=== PATIENT | female | born 1965 | race Caucasian/White ===

== ENCOUNTER 2017-03-06 03:39 | Emergency (ER) | payer SELFPAY ==
[2017-03-06 04:29] LABS: Eosinophils % (Auto) 3.6 % (0.0-4.3); Hematocrit 38.7 % (30.3-42.9); Hemoglobin 12.6 gm/dl (10.1-14.3); Mean Corpuscular HGB Conc 33 % (30-34); Mean Corpuscular Hemoglobin 27 pg (28-32); Mean Corpuscular Volume 84 fl (79-97); Platelet Count 217 K/mm3 (140-440); Red Blood Count 4.62 M/mm3 (3.65-5.03); Red Cell Distribution Width 13.4 % (13.2-15.2); White Blood Count 8.5 K/mm3 (4.5-11.0)
[2017-03-06 04:52] LABS: Anion Gap 20 mmol/L; BUN/Creatinine Ratio 15.55; Blood Urea Nitrogen 14 mg/dL (7-17); Calcium 8.6 mg/dL (8.4-10.2); Carbon Dioxide 20 mmol/L (22-30); Chloride 102.9 mmol/L (98-107); Glucose 147 mg/dL (65-100); Potassium 3.6 mmol/L (3.6-5.0); Sodium 139 mmol/L (137-145)
[2017-03-06] MEDS ORDERED: FLEXERIL PO ONE (12:51)
--- NOTE | 2017-03-06 12:56 | Emergency Department Report ---
ED General Adult HPI - General Chief complaint: Chest Pain Stated complaint: LEFT SHLDR PAIN/SOB/CP Time Seen by Provider: 03/06/17 12:39 Source: patient Mode of arrival: Ambulatory Limitations: No Limitations - History of Present Illness Initial comments: 51-year-old female presents to the emergency department complaining of left upper back and shoulder pain beginning yesterday at approximately noon. Patient describes a sharp pain that has been constant since onset. Pain has begun to radiate over the top of her shoulder and into her left chest. She states the pain makes it difficult for her to breathe. She denies associated lightheadedness, diaphoresis, nausea, or vomiting. Pain is worse with movement from side to side. There are no other complaints. -: Gradual, days(s) (1) Time: 12:00 Location: back, left, upper extremity Radiation: other (chest) Severity scale (0 -10): 8 Quality: sharp Consistency: constant Improves with: none Worsens with: movement Associated Symptoms: shortness of breath Treatments Prior to Arrival: Aspirin - Related Data Home Medications Medication Instructions Recorded Confirmed Last Taken Lisinopril/Hydrochlorothiazide 1 tab PO DAILY 12/07/14 03/13/15 12/06/14 [Lisinopril-Hctz 10-12.5 mg Tab] 10/12.5mg Metformin HCl [metFORMIN ER] 500 mg PO DAILY 12/07/14 03/13/15 12/06/14 500mg Previous Rx's Medication Instructions Recorded Last Taken Type Aspirin [Aspirin BABY CHEW TAB] 81 mg PO QDAY #30 tab.chew 12/07/14 Unknown Rx Atorvastatin [Lipitor] 40 mg PO QHS #30 tab 12/07/14 Unknown Rx HYDROcodone/APAP 5-325 [[place] 1 each PO Q6HR PRN #20 tablet 03/13/15 Unknown Rx 5/325] Ibuprofen [Motrin] 800 mg PO Q8H PRN #30 tablet 03/13/15 Unknown Rx Cyclobenzaprine [Flexeril] 10 mg PO TID PRN #30 tablet 03/06/17 Unknown Rx Allergies Allergy/AdvReac Type Severity Reaction Status Date / Time No Known Allergies Allergy Verified 12/07/14 07:10 ED Review of Systems ROS: Stated complaint: LEFT SHLDR PAIN/SOB/CP Other details as noted in HPI Comment: All other systems reviewed and negative Respiratory: shortness of breath Musculoskeletal: as per HPI, back pain ED Past Medical Hx - Past Medical History Previous Medical History?: Yes Hx Hypertension: Yes Hx Diabetes: Yes (borderline type II) Additional medical history: Anemia - Surgical History Past Surgical History?: No - Family History Family history: hypertension, renal disease - Social History Smoking Status: Current Every Day Smoker Substance Use Type: None - Medications Home Medications: Home Medications Medication Instructions Recorded Confirmed Last Taken Type Aspirin [Aspirin BABY CHEW TAB] 81 mg PO QDAY #30 tab.chew 12/07/14 03/13/15 Unknown Rx Atorvastatin [Lipitor] 40 mg PO QHS #30 tab 12/07/14 03/13/15 Unknown Rx Lisinopril/Hydrochlorothiazide 1 tab PO DAILY 12/07/14 03/13/15 12/06/14 History [Lisinopril-Hctz 10-12.5 mg Tab] 10/12.5mg Metformin HCl [metFORMIN ER] 500 mg PO DAILY 12/07/14 03/13/15 12/06/14 History 500mg HYDROcodone/APAP 5-325 [[place] 1 each PO Q6HR PRN #20 tablet 03/13/15 Unknown Rx 5/325] Ibuprofen [Motrin] 800 mg PO Q8H PRN #30 tablet 03/13/15 Unknown Rx Cyclobenzaprine [Flexeril] 10 mg PO TID PRN #30 tablet 03/06/17 Unknown Rx ED Physical Exam - General Limitations: No Limitations General appearance: alert, in no apparent distress - Head Head exam: Present: atraumatic, normocephalic - Eye Eye exam: Present: normal appearance, PERRL, EOMI - ENT ENT exam: Present: normal exam, normal orophraynx, mucous membranes moist - Neck Neck exam: Present: normal inspection, full ROM. Absent: tenderness - Respiratory Respiratory exam: Present: normal lung sounds bilaterally. Absent: respiratory distress, chest wall tenderness - Cardiovascular Cardiovascular Exam: Present: regular rate, normal rhythm, normal heart sounds - GI/Abdominal GI/Abdominal exam: Present: soft, normal bowel sounds. Absent: distended, tenderness - Extremities Exam Extremities exam: Present: normal inspection, full ROM. Absent: tenderness - Back Exam Back exam: Present: normal inspection, full ROM, tenderness, muscle spasm, paraspinal tenderness (left upper thoracic). Absent: vertebral tenderness - Neurological Exam Neurological exam: Present: alert, oriented X3. Absent: motor sensory deficit - Skin Skin exam: Present: warm, dry, intact ED Course Vital Signs 03/06/17 03/06/17 03:59 07:01 Temperature 98.4 F 97.4 F L Pulse Rate 50 L 45 L Respiratory 20 18 Rate Blood Pressure 164/112 175/99 O2 Sat by Pulse 100 100 Oximetry ED Medical Decision Making - Lab Data Result diagrams: 03/06/17 04:14 03/06/17 04:14 - EKG Data -: EKG Interpreted by Me EKG shows normal: sinus rhythm, axis, intervals, QRS complexes Rate: bradycardia - EKG Data When compared to previous EKG there are: no significant change Interpretation: unchanged when compared t (12/07/2014), nonspecific ST-T wave amanda - Medical Decision Making Lab results reviewed and discussed with the patient. Patient has had a nonischemic ECG and 3 negative troponins. Her symptoms are more consistent with musculoskeletal upper back pain. Patient will be discharged home at this time with supportive care to follow-up with her primary care physician. - Differential Diagnosis back pain, muscle spasm, atypical chest pain Critical care attestation.: If time is entered above; I have spent that time in minutes in the direct care of this critically ill patient, excluding procedure time. ED Disposition Clinical Impression: Muscle spasm of back Disposition: DISCHARGED TO HOME OR SELFCARE Is pt being admited?: No Condition: Stable Instructions: Muscle Spasm (ED) Prescriptions: Cyclobenzaprine [Flexeril] 10 mg PO TID PRN #30 tablet PRN Reason: Muscle Spasm Referrals: PRIMARY CARE, [Primary Care Provider] - 3-5 Days Time of Disposition: 12:56
[2017-03-06 13:20] VITALS: BP 173/94
== END 2017-03-06 13:21 | disposition home or self-care (01) ==
LOC: ED 03:39
DX: M62.830 Muscle spasm of back (principal); I10 Essential (primary) hypertension; F17.200 Nicotine dependence, unspecified, uncomplicated
CPT/HCPCS: 36415; 80048; 84484; 85025; 93005; 93010; 99284

== ENCOUNTER 2017-11-23 10:37 | Emergency (ER) | payer OTHER ==
[2017-11-23 11:38] VITALS: BP 142/94
[2017-11-23] MEDS ORDERED: NORCO 5/325 PO ONE (11:54)
--- NOTE | 2017-11-23 11:55 | Emergency Department Report ---
HPI - General Chief Complaint: Earache Time Seen by Provider: 11/23/17 11:49 - HPI HPI: Patient reported that she's been having right ear pain that started 1 week ago. She says she is having lots of itching in denies any trauma to right ear. Denies any drainage. Denies any fever or chills. She reports nasal congestion and runny nose. Denies any shortness of breath, chest pain or coughing. Pain is 7 out of 10 and [id number] medication helped minimally. Patient has no primary care physician. She has a history of prediabetes and hypertension and not taking medication. Patient said she was on medication in the past but she ran out and she doesn't have any insurance or primary care physician. Her blood pressure today is 142/94. ED Past Medical Hx - Past Medical History Previous Medical History?: Yes Hx Hypertension: Yes Hx CVA: No Hx Heart Attack/AMI: No Hx Congestive Heart Failure: No Hx Diabetes: Yes (borderline type II) Hx Deep Vein Thrombosis: No Hx Pulmonary Embolism: No Hx GERD: No Hx Liver Disease: No Hx Renal Disease: No Hx of Cancer: No Hx Sickle Cell Disease: No Hx Arthritis: No Hx Headaches / Migraines: No Hx Seizures: No Hx Kidney Stones: No Hx Psychiatric Treatment: No Hx Asthma: No Hx COPD: No Hx Tuberculosis: No Hx Dementia: No Hx HIV: No Additional medical history: Anemia - Surgical History Past Surgical History?: No Hx Coronary Stent: No Hx Open Heart Surgery: No Hx Pacemaker: No Hx Internal Defibrillator: No Hx Cholecystectomy: No Hx Appendectomy: No Hx Breast Surgery: No - Family History Family history: diabetes, hypertension - Social History Smoking Status: Current Every Day Smoker Substance Use Type: None - Medications Home Medications: Home Medications Medication Instructions Recorded Confirmed Last Taken Type Aspirin [Aspirin BABY CHEW TAB] 81 mg PO QDAY #30 tab.chew 12/07/14 03/13/15 Unknown Rx HYDROcodone/APAP 5-325 [[place] 1 each PO Q6HR PRN #20 tablet 03/13/15 Unknown Rx 5/325] Ibuprofen [Motrin] 800 mg PO Q8H PRN #30 tablet 03/13/15 Unknown Rx Atorvastatin [Lipitor] 40 mg PO QHS #30 tab 03/06/17 Unknown Rx Cyclobenzaprine [Flexeril] 10 mg PO TID PRN #30 tablet 03/06/17 Unknown Rx Lisinopril/Hydrochlorothiazide 1 tab PO QDAY #30 tablet 03/06/17 Unknown Rx [Zestoretic 10-12.5 mg] metFORMIN [Glucophage] 500 mg PO BID #60 tablet 03/06/17 Unknown Rx Acetaminophen/Codeine [Tylenol 1 tab PO Q6H PRN 3 Days #12 tab 11/23/17 Unknown Rx /Codeine # 3 tab] Amoxicillin/K Clav Tab [Augmentin 1 tab PO Q12HR 10 Days #20 tab 11/23/17 Unknown Rx 875 mg] Cetirizine HCl [ZyrTEC] 10 mg PO QAM 14 Days #14 capsule 11/23/17 Unknown Rx Fluticasone [Flonase] 1 spray NS QDAY 14 Days #1 bottle 11/23/17 Unknown Rx Neomy/Polymyx B/Hc (Otic) Soln 4 drops OTIC TID 7 Days #1 bottle 11/23/17 Unknown Rx [Cortisporin (Otic) Soln] ED Review of Systems ROS: Stated complaint: RIGHT EAR PAIN Other details as noted in HPI Comment: All other systems reviewed and negative Constitutional: no symptoms reported Eyes: denies: eye pain, eye discharge ENT: ear pain, hearing loss (decreased hearing to right ear), congestion. denies: throat pain, dental pain Respiratory: no symptoms reported Cardiovascular: denies: chest pain, palpitations, dyspnea on exertion, edema, syncope, paroxysmal nocturnal dyspnea Gastrointestinal: denies: abdominal pain, nausea, vomiting, diarrhea Musculoskeletal: denies: back pain, joint swelling, arthralgia, myalgia Skin: denies: rash Neurological: denies: headache, vertigo Physical Exam - Physical Exam Vital Signs: Vital Signs 11/23/17 11:26 Temperature 98.3 F Pulse Rate 69 Respiratory 16 Rate Blood Pressure 142/94 Blood Pressure 142/94 [Right] O2 Sat by Pulse 98 Oximetry General: This is a 52-year-old female well-nourished well-developed in no acute distress. Physical Exam: Head: Normocephalic atraumatic Ears:BIateral TM congested without RT TM erythema and loss of bony landmarks. RT EAC with redness and swelling and tender to palpate at right tragus. No mastoid bone tenderness. Mouth: Moist, no pharyngeal erythema or exudate . No tonsillar erythema or exudate. UVULA midline and oral airways patent. No peritonsillar abscess Neck: Nontender to palpate, supple, normal range of motion. No adenopathy. No c- spine tenderness. Nose: Bilateral nasal mucosa congested with clear drainage. Maxillary and frontal sinuses non-tender to palpate. Eyes: Sclerae and conjunctiva without injection. Bilateral pupils equal and reactive to light. Bilateral lids are normal. Normal accommodation.BEOMI Lungs: Clear to auscultate bilaterally, no rhonchi wheezes or rales. Normal work of breathing and no chest wall tenderness CV: S1, S2. Regular rate and rhythm negative murmur. Capillary refill is less than 3 seconds Skin: Clean dry and intact, no rashes or lesions Psych: Normal mood and behavior ED Course Vital Signs 11/23/17 11:26 Temperature 98.3 F Pulse Rate 69 Respiratory 16 Rate Blood Pressure 142/94 Blood Pressure 142/94 [Right] O2 Sat by Pulse 98 Oximetry - Reevaluation(s) Reevaluation #1: 11/23/17 12:06 Given [place] 5/325 one tablet by mouth in the emergency room for right ear pain. ED Medical Decision Making - Medical Decision Making ED course: Patient here with right ear pain that she been ongoing for 1 week. She was found to have otitis externa and otitis media right ear. Also with nasal congestion with rhinorrhea. Patient was given [place] 5/325 one tablets by mouth emergency room for right ear pain. Patient discharged home with prescriptions for Tylenol 3, Motrin, Corticosporin on headache and Augmentin. I discussed treatment plan and diagnosis of patient and I discussed with her that she needs to follow-up with [facility] to establish primary care to manage chronic hypertension and prediabetes and also for any other medical problems that might come up. I also discussed with her that she needs to keep a log of her blood pressure and take to initial visit at some [facility]. I also discussed patient that she needs to follow up with ear nose and throat doctor and I will refer her to one. Patient voiced understanding of discharge instruction and treatment plan and discharged home in stable condition. Critical care attestation.: If time is entered above; I have spent that time in minutes in the direct care of this critically ill patient, excluding procedure time. ED Disposition Clinical Impression: Nasal congestion with rhinorrhea, Acute otitis media with effusion of right ear , Otalgia, right ear Otitis externa of right ear Qualifiers: Otitis externa type: unspecified type Chronicity: acute Qualified Code(s): H60.501 - Unspecified acute noninfective otitis externa, right ear Disposition: DC-01 TO HOME OR SELFCARE Is pt being admited?: No Does the pt Need Aspirin: No Condition: Stable Instructions: Earache (ED), Otitis Externa (ED), Otitis Media (ED), Cold Symptoms (ED) Additional Instructions: Please increase her fluid intake Flush nostrils with saline nasal spray take antibiotic as prescribed Please of not drive or operate heavy machinery while taking Tylenol No. 3 as this medication causes drowsiness F/U with primary care physician as instructed Please keep a log a few blood pressure and take to primary care visit with you. Prescriptions: Acetaminophen/Codeine [Tylenol /Codeine # 3 tab] 1 tab PO Q6H PRN 3 Days #12 tab PRN Reason: Pain, Moderate (4-6) Amoxicillin/K Clav Tab [Augmentin 875 mg] 1 tab PO Q12HR 10 Days #20 tab Cetirizine HCl [ZyrTEC] 10 mg PO QAM 14 Days #14 capsule Fluticasone [Flonase] 1 spray NS QDAY 14 Days #1 bottle Neomy/Polymyx B/Hc (Otic) Soln [Cortisporin (Otic) Soln] 4 drops OTIC TID 7 Days #1 bottle Referrals: [facility] [Outside] - 3-5 Days ISATU SPRING MD [Staff Physician] - 2-3 Days Forms: Accompanied Note, Work/School Release Form(ED)
== END 2017-11-23 12:24 | disposition home or self-care (01) ==
LOC: ED 10:37
DX: H60.501 Unspecified acute noninfective otitis externa, right ear (principal); H65.191 Other acute nonsuppurative otitis media, right ear; I10 Essential (primary) hypertension; F17.200 Nicotine dependence, unspecified, uncomplicated; R09.81 Nasal congestion; R09.89 Other specified symptoms and signs involving the circulatory and respiratory systems
CPT/HCPCS: 99282

== ENCOUNTER 2018-01-06 10:37 | Emergency (ER) | payer SELFPAY ==
[2018-01-06 11:50] LABS: Bilirubin,Urine NEG (Negative); Blood,Urine MOD (Negative); Color,Urine Yellow (Yellow); Mucus,Urine 3+ /HPF; Nitrite,Urine NEG (Negative); Protein,Urine <15 mg/dL mg/dL (Negative); Urobilinogen,Urine < 2.0 mg/dL (<2.0)
[2018-01-06] MEDS ORDERED: NACL 0.9% 1000 ML 1,000 ML IV ONE (12:46)
[2018-01-06] MEDS ORDERED: CATAPRES PO ONE (12:46)
--- NOTE | 2018-01-06 12:46 | Emergency Department Report ---
Blank Doc - Documentation Documentation: is a 52-year-old Citizen Of [place] female who is presenting with several issues. Issue #1 is that the patient is having some vaginal itching status post taken antibiotics several weeks ago. Patient most likely has a yeast infection. Patient also has been off her blood pressure medicines for the past 3 months. Blood pressure was elevated to be given blood pressure control. Patient also on her urinalysis has a elevated blood glucose he does have urinary frequency. Patient will have blood work done to see how uncontrolled her glucoses. Patient was told 3 years ago she was borderline diabetic.
--- NOTE | 2018-01-06 12:51 | Emergency Department Report ---
ED Female HPI - General Chief complaint: Urogenital-Female Stated complaint: VAGINAL ITCHING/LEFT WRIST PAIN Time Seen by Provider: 01/06/18 12:38 Source: patient Mode of arrival: Ambulatory Limitations: No Limitations - History of Present Illness Initial comments: This is a 52-year-old female with complaint of vaginal irritation and itching. She was recently treated with amoxicillin for infection and report that she got vaginal irritation for 2 weeks. Denies any concern for STDs. She has associated pressure and has been out of her blood pressure medication for 3 months. She is also was noted to have greater than 500 glucose and a urine and said that she was told that she was borderline diabetic a while back but did not follow-up. Her POC glucoses that her stool and today. She is complaining of left wrist pain. Vaginal pain externally. Vaginal itching externally. Pain is rated from 5-7 out of 10. Burning to the external vaginal area and aching into left wrist. Patient blood pressure is 184/105 with history of high blood pressure on not taking her blood pressure medication. She is asymptomatic with elevated blood pressure. No [id number] medication taken for pain. Painful left wrist is occasional and denies any injury. Denies any fever or chills. Denies any abdominal low back pain. Denies any urinary burning, frequency or urgency. Denies any blood in her urine. She does complain of some urinary frequency but denies any increased thirst. Denies any recent weight loss. MD Complaint: other (vaginal irritation and itching, left wrist pain, history of hypertension with no medication at this time but was on medication in the past.) Onset/Timin -: week(s) (vaginal irritation. The pressure medication of 3 months.) Severity: severe Severity scale (0 -10): 7 Quality: burning, aching Consistency: constant, intermittent Improves with: none Worsens with: none Are you Now?: No Associated Symptoms: other (external vaginal pain and itching, left wrist pain, elevated BP.). denies: vaginal discharge, vaginal bleeding, abdominal pain, nausea/vomiting, fever/chills, headaches, loss of appetite, dysuria, hematuria, rash, seizure, shortness of breath, syncope, weakness - Related Data Sexually active: Yes Previous Rx's Medication Instructions Recorded Last Taken Type Aspirin [Aspirin BABY CHEW TAB] 81 mg PO QDAY #30 tab.chew 12/07/14 Unknown Rx HYDROcodone/APAP 5-325 [[place] 1 each PO Q6HR PRN #20 tablet 03/13/15 Unknown Rx 5/325] Ibuprofen [Motrin] 800 mg PO Q8H PRN #30 tablet 03/13/15 Unknown Rx Atorvastatin [Lipitor] 40 mg PO QHS #30 tab 03/06/17 Unknown Rx Cyclobenzaprine [Flexeril] 10 mg PO TID PRN #30 tablet 03/06/17 Unknown Rx Acetaminophen/Codeine [Tylenol 1 tab PO Q6H PRN 3 Days #12 tab 11/23/17 Unknown Rx /Codeine # 3 tab] Amoxicillin/K Clav Tab [Augmentin 1 tab PO Q12HR 10 Days #20 tab 11/23/17 Unknown Rx 875 mg] Cetirizine HCl [ZyrTEC] 10 mg PO QAM 14 Days #14 capsule 11/23/17 Unknown Rx Fluticasone [Flonase] 1 spray NS QDAY 14 Days #1 bottle 11/23/17 Unknown Rx Neomy/Polymyx B/Hc (Otic) Soln 4 drops OTIC TID 7 Days #1 bottle 11/23/17 Unknown Rx [Cortisporin (Otic) Soln] Fluconazole [Diflucan TAB] 100 mg PO QDAY 2 Days #2 tablet 01/06/18 Unknown Rx Lisinopril/Hydrochlorothiazide 1 tab PO QDAY #30 tablet 01/06/18 Unknown Rx [Zestoretic 10-12.5 mg] Nystatin Cream [Mycostatin Cream] 1 applic TP BID #1 tube 01/06/18 Unknown Rx metFORMIN [Glucophage] 500 mg PO BID #60 tablet 01/06/18 Unknown Rx metroNIDAZOLE [Flagyl] 500 mg PO Q12HR 7 Days #14 tab 01/06/18 Unknown Rx Allergies Allergy/AdvReac Type Severity Reaction Status Date / Time No Known Allergies Allergy Verified 12/07/14 07:10 ED Review of Systems ROS: Stated complaint: VAGINAL ITCHING/LEFT WRIST PAIN Other details as noted in HPI Comment: All other systems reviewed and negative Constitutional: no symptoms reported Eyes: denies: eye pain, eye discharge, vision change ENT: denies: ear pain Respiratory: no symptoms reported Cardiovascular: denies: chest pain, palpitations, dyspnea on exertion, edema, syncope, paroxysmal nocturnal dyspnea Endocrine: denies: excessive sweating, flushing, intolerance to cold, intolerance to heat, increased hunger, increased thirst, increased urine, unexplained weight gain, unexplained weight loss Gastrointestinal: denies: abdominal pain, nausea, vomiting, diarrhea, constipation, hematemesis, melena, hematochezia Genitourinary: frequency, other (vaginal irritation and redness). denies: urgency, dysuria, hematuria, discharge, abnormal menses, dyspareunia Skin: denies: rash Neurological: denies: headache, weakness, numbness, paresthesias, confusion, abnormal gait, vertigo Psychiatric: denies: anxiety ED Past Medical Hx - Past Medical History Previous Medical History?: Yes Hx Hypertension: Yes Hx CVA: No Hx Heart Attack/AMI: No Hx Congestive Heart Failure: No Hx Diabetes: Yes (borderline type II) Hx Deep Vein Thrombosis: No Hx Pulmonary Embolism: No Hx GERD: No Hx Liver Disease: No Hx Renal Disease: No Hx Sickle Cell Disease: No Hx Arthritis: No Hx Headaches / Migraines: No Hx Seizures: No Hx Kidney Stones: No Hx Psychiatric Treatment: No Hx Asthma: No Hx COPD: No Hx Tuberculosis: No Hx Dementia: No Hx HIV: No Additional medical history: Anemia - Surgical History Past Surgical History?: No Hx Coronary Stent: No Hx Open Heart Surgery: No Hx Pacemaker: No Hx Internal Defibrillator: No Hx Cholecystectomy: No Hx Appendectomy: No Hx Breast Surgery: No - Family History Family history: diabetes, hypertension - Social History Smoking Status: Never Smoker Substance Use Type: Alcohol, Prescribed - Medications Home Medications: Home Medications Medication Instructions Recorded Confirmed Last Taken Type Aspirin [Aspirin BABY CHEW TAB] 81 mg PO QDAY #30 tab.chew 12/07/14 03/13/15 Unknown Rx HYDROcodone/APAP 5-325 [[place] 1 each PO Q6HR PRN #20 tablet 03/13/15 Unknown Rx 5/325] Ibuprofen [Motrin] 800 mg PO Q8H PRN #30 tablet 03/13/15 Unknown Rx Atorvastatin [Lipitor] 40 mg PO QHS #30 tab 03/06/17 Unknown Rx Cyclobenzaprine [Flexeril] 10 mg PO TID PRN #30 tablet 03/06/17 Unknown Rx Acetaminophen/Codeine [Tylenol 1 tab PO Q6H PRN 3 Days #12 tab 11/23/17 Unknown Rx /Codeine # 3 tab] Amoxicillin/K Clav Tab [Augmentin 1 tab PO Q12HR 10 Days #20 tab 11/23/17 Unknown Rx 875 mg] Cetirizine HCl [ZyrTEC] 10 mg PO QAM 14 Days #14 capsule 11/23/17 Unknown Rx Fluticasone [Flonase] 1 spray NS QDAY 14 Days #1 bottle 11/23/17 Unknown Rx Neomy/Polymyx B/Hc (Otic) Soln 4 drops OTIC TID 7 Days #1 bottle 11/23/17 Unknown Rx [Cortisporin (Otic) Soln] Fluconazole [Diflucan TAB] 100 mg PO QDAY 2 Days #2 tablet 01/06/18 Unknown Rx Lisinopril/Hydrochlorothiazide 1 tab PO QDAY #30 tablet 01/06/18 Unknown Rx [Zestoretic 10-12.5 mg] Nystatin Cream [Mycostatin Cream] 1 applic TP BID #1 tube 01/06/18 Unknown Rx metFORMIN [Glucophage] 500 mg PO BID #60 tablet 01/06/18 Unknown Rx metroNIDAZOLE [Flagyl] 500 mg PO Q12HR 7 Days #14 tab 01/06/18 Unknown Rx ED Physical Exam - General Limitations: No Limitations General appearance: alert, in no apparent distress - Head Head exam: Present: atraumatic, normocephalic, normal inspection - Eye Eye exam: Present: normal appearance, PERRL, EOMI Pupils: Present: normal accommodation - ENT ENT exam: Present: normal exam, normal orophraynx, mucous membranes moist, TM's normal bilaterally, normal external ear exam - Neck Neck exam: Present: normal inspection, full ROM, other (no C-spine tenderness). Absent: tenderness, meningismus, lymphadenopathy, thyromegaly - Respiratory Respiratory exam: Present: normal lung sounds bilaterally. Absent: respiratory distress, chest wall tenderness, accessory muscle use - Cardiovascular Cardiovascular Exam: Present: regular rate, normal rhythm, normal heart sounds. Absent: systolic murmur, diastolic murmur - GI/Abdominal GI/Abdominal exam: Present: soft, normal bowel sounds. Absent: distended, tenderness, guarding, rebound, rigid, organomegaly, mass, bruit, pulsatile mass , hernia - External exam: Present: erythema, swelling. Absent: normal external exam, lesions, lacerations, ecchymosis, bleeding Speculum exam: Present: vaginal discharge, cervical discharge, other (patient has small kidney shaped , fleshy, extended from her cervix that is not removable. No CMT and nontender to palpate. Appears to be an appendage coming from her cervix area) Bi-manual exam: Present: other (patient has small kidney shaped , fleshy, extended from her cervix that is not removable. No CMT and nontender to palpate. Appears to be an appendage coming from her cervix area). Absent: cervical motion tendernes, adnexal tenderness, adnexal mass, uterine enlargement , uterine tenderness - Extremities Exam Extremities exam: Present: normal inspection, full ROM, normal capillary refill , other (abdomen is without any difficulties). Absent: tenderness, pedal edema , joint swelling, calf tenderness - Back Exam Back exam: Present: normal inspection, full ROM. Absent: tenderness, CVA tenderness (R), CVA tenderness (L), muscle spasm, paraspinal tenderness, vertebral tenderness, rash noted - Neurological Exam Neurological exam: Present: alert, oriented X3, normal gait, reflexes normal. Absent: motor sensory deficit - Psychiatric Psychiatric exam: Present: normal affect, normal mood - Skin Skin exam: Present: warm, dry, intact, normal color. Absent: rash ED Course Vital Signs 01/06/18 01/06/18 01/06/18 10:48 13:24 13:26 Temperature 98.6 F Pulse Rate 97 H 47 L 47 L Respiratory 20 20 Rate Blood Pressure 184/105 146/76 Blood Pressure 146/76 [Left] O2 Sat by Pulse 99 99 Oximetry - Reevaluation(s) Reevaluation #1: 01/06/18 13:12 Patient stable no distress at present. She started again IV fluids normal saline for elevated blood sugar. Clonidine 0.2 mg per elevated blood pressure. Awaiting lab results. Reevaluation #2: 01/06/18 13:32 Patient had pelvic exam, GC ,chlamydia and wet prep sent and pending. 01/06/18 14:14 Patient is stable at present. No discomfort. Blood pressure stable. Pelvic exam revealed vulvovaginitis and normal findings and cervix for mass. Patient given IV Rocephin 1 g IV and completed IV fluid. Awaiting blood glucose Reevaluation #3: 01/06/18 14:33 Blood sugar is now 267 patient's stable. IV fluid completed. ED Medical Decision Making - Lab Data Result diagrams: 01/06/18 13:05 01/06/18 13:05 Lab Results 01/06/18 01/06/18 01/06/18 Range/Units 11:01 11:12 13:05 WBC 9.0 (4.5-11.0) K/mm3 RBC 4.95 (3.65-5.03) M/mm3 Hgb 13.6 (10.1-14.3) gm/dl Hct 41.1 (30.3-42.9) % MCV 83 (79-97) fl MCH 27 L (28-32) pg MCHC 33 (30-34) % RDW 13.5 (13.2-15.2) % Plt Count 245 (140-440) K/mm3 Lymph % (Auto) 23.5 (13.4-35.0) % [place] % (Auto) 4.9 (0.0-7.3) % Eos % (Auto) 1.8 (0.0-4.3) % Baso % (Auto) 0.9 (0.0-1.8) % Lymph # 2.1 (1.2-5.4) K/mm3 [place] # 0.4 (0.0-0.8) K/mm3 Eos # 0.2 (0.0-0.4) K/mm3 Baso # 0.1 (0.0-0.1) K/mm3 Seg Neutrophils % 68.9 (40.0-70.0) % Seg Neutrophils # 6.2 (1.8-7.7) K/mm3 Sodium (137-145) mmol/L Potassium (3.6-5.0) mmol/L Chloride (98-107) mmol/L Carbon Dioxide (22-30) mmol/L Anion Gap mmol/L BUN (7-17) mg/dL Creatinine (0.7-1.2) mg/dL Estimated GFR ml/min BUN/Creatinine Ratio % Glucose (65-100) mg/dL POC Glucose 351 H (70-105) Calcium (8.4-10.2) mg/dL Urine Color Yellow (Yellow) Urine Turbidity Clear (Clear) Urine pH 5.0 (5.0-7.0) Ur Specific [place] 1.037 H (1.003-1.030) Urine Protein <15 mg/dl (Negative) mg/dL Urine Glucose (UA) >=500 (Negative) mg/dL Urine Ketones Neg (Negative) mg/dL Urine Blood Mod (Negative) Urine Nitrite Neg (Negative) Urine Bilirubin Neg (Negative) Urine Urobilinogen < 2.0 (<2.0) mg/dL Ur Leukocyte Esterase Neg (Negative) Urine WBC (Auto) 10.0 H (0.0-6.0) /HPF Urine RBC (Auto) 1.0 (0.0-6.0) /HPF U Epithel Cells (Auto) 2.0 (0-13.0) /HPF Urine Mucus 3+ /HPF 01/06/18 Range/Units 13:05 WBC (4.5-11.0) K/mm3 RBC (3.65-5.03) M/mm3 Hgb (10.1-14.3) gm/dl Hct (30.3-42.9) % MCV (79-97) fl MCH (28-32) pg MCHC (30-34) % RDW (13.2-15.2) % Plt Count (140-440) K/mm3 Lymph % (Auto) (13.4-35.0) % [place] % (Auto) (0.0-7.3) % Eos % (Auto) (0.0-4.3) % Baso % (Auto) (0.0-1.8) % Lymph # (1.2-5.4) K/mm3 [place] # (0.0-0.8) K/mm3 Eos # (0.0-0.4) K/mm3 Baso # (0.0-0.1) K/mm3 Seg Neutrophils % (40.0-70.0) % Seg Neutrophils # (1.8-7.7) K/mm3 Sodium 136 L (137-145) mmol/L Potassium 3.6 (3.6-5.0) mmol/L Chloride 102.7 (98-107) mmol/L Carbon Dioxide 23 (22-30) mmol/L Anion Gap 14 mmol/L BUN 9 (7-17) mg/dL Creatinine 0.7 (0.7-1.2) mg/dL Estimated GFR > 60 ml/min BUN/Creatinine Ratio 13 % Glucose 299 H (65-100) mg/dL POC Glucose (70-105) Calcium 8.8 (8.4-10.2) mg/dL Urine Color (Yellow) Urine Turbidity (Clear) Urine pH (5.0-7.0) Ur Specific [place] (1.003-1.030) Urine Protein (Negative) mg/dL Urine Glucose (UA) (Negative) mg/dL Urine Ketones (Negative) mg/dL Urine Blood (Negative) Urine Nitrite (Negative) Urine Bilirubin (Negative) Urine Urobilinogen (<2.0) mg/dL Ur Leukocyte Esterase (Negative) Urine WBC (Auto) (0.0-6.0) /HPF Urine RBC (Auto) (0.0-6.0) /HPF U Epithel Cells (Auto) (0-13.0) /HPF Urine Mucus /HPF Wet prep with no trichomoniasis, no yeast and 20% clue cells. GC and chlamydia is pending. Urine culture pending - Medical Decision Making ED course: Patient with multiple complaints include vaginal itching and burning , with pelvic exam findings for cervical and vaginal discharge without any odor. She also has appendage extending from her cervical os that is nontender to touch and she had no CMT. Wet prep revealed less than 20% clue cell, no trichomonas or yeast seen. Patient with diagnosis of vulvovaginitis, use. She is also complaining of left wrist pain without any injury and she is with full range of motion without numbness on the erythema. Lab work stable except she has urinalysis with findings for UTI, urine culture sent and pending, E and chlamydia pending. Patient has greater her glucose in her urine, POC glucose 351 and glucose is greater than 250. She has been given 1 L normal saline. Blood pressure is stable without any medication. She had elevated blood pressure injury last year but when retaken it was stable. She also has high blood pressure and said that she's been out of her medication for 3 months. She is also taking metformin in the past but does not remember murmur dosage. Patient medical records reflect that she was here on 03/06/2017 and was given prescription for lisinopril, metformin, Lipitor. This is discussed and the patient has history of diabetes, hypertension and high cholesterol. Patient does not have access to primary care physician nor does she have insurance and I discussed with her that she'll need to follow up with [facility] for chronic medical problems. I discussed with her her diagnosis, treatment plan and needed follow-up. She voiced understanding and discharged home in stable condition with prescription for Flagyl, Macrobid, metformin and lisinopril with HCTZ. Critical care attestation.: If time is entered above; I have spent that time in minutes in the direct care of this critically ill patient, excluding procedure time. 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 Qualified Code(s): E11.65 - Type 2 diabetes mellitus with hyperglycemia UTI (urinary tract infection) Qualifiers: Urinary tract infection type: acute cystitis Hematuria presence: with hematuria Qualified Code(s): N30.01 - Acute cystitis with hematuria Disposition: DC- TO HOME OR SELFCARE Is pt being admited?: No Does the pt Need Aspirin: No Condition: Stable Instructions: Bacterial Vaginosis (ED), Pap Smear (ED), How to Check Your Blood Sugar (ED), Diabetes Mellitus Type 2 in Adults (ED), Meal Planning with Diabetes Exchanges (DC), Hypertension (ED), Arthralgia (ED), Urinary Tract Infection in Women (ED) Additional Instructions: You have an abnormal findings on your pelvic exam that revealed cervical [place] need to have follow-up with [facility]. Please see referral in discharge instruction before. You will also need to have a Pap smear. Follow-up with [facility] as instructed. Please keep a log a few blood sugar and your blood pressure and take to primary care physician with you. Take medication as instructed Increase his fluid intake and applying nystatin cream to the vaginal area as instructed Prescriptions: Fluconazole [Diflucan TAB] 100 mg PO QDAY 2 Days #2 tablet Lisinopril/Hydrochlorothiazide [Zestoretic 10-12.5 mg] 1 tab PO QDAY #30 tablet metFORMIN [Glucophage] 500 mg PO BID #60 tablet metroNIDAZOLE [Flagyl] 500 mg PO Q12HR 7 Days #14 tab Nystatin Cream [Mycostatin Cream] 1 applic TP BID #1 tube Referrals: PRIMARY CARE, [Primary Care Provider] - 2-3 Days [facility] [Outside] - 2-3 Days VALENTINA JIMENEZ MD [Staff Physician] - 3-5 Days Forms: STI Treatment and Prevention, Work/School Release Form(ED)
[2018-01-06 13:24] VITALS: BP 146/76
[2018-01-06 13:25] LABS: Basophils # (Auto) 0.1 K/mm3 (0.0-0.1); Basophils % (Auto) 0.9 % (0.0-1.8); Eosinophils # (Auto) 0.2 K/mm3 (0.0-0.4); Eosinophils % (Auto) 1.8 % (0.0-4.3); Hematocrit 41.1 % (30.3-42.9); Hemoglobin 13.6 gm/dl (10.1-14.3); Lymphocytes # (Auto) 2.1 K/mm3 (1.2-5.4); Lymphocytes % (Auto) 23.5 % (13.4-35.0); Mean Corpuscular HGB Conc 33 % (30-34); Mean Corpuscular Hemoglobin 27 pg (28-32); Mean Corpuscular Volume 83 fl (79-97); Monocytes # (Auto) 0.4 K/mm3 (0.0-0.8); Monocytes % (Auto) 4.9 % (0.0-7.3); Platelet Count 245 K/mm3 (140-440); Red Blood Count 4.95 M/mm3 (3.65-5.03); Red Cell Distribution Width 13.5 % (13.2-15.2)
[2018-01-06] MEDS ORDERED: ROCEPHIN/NS 1 GM/50 ML 1 GM/50 ML BAG IV ONE (13:37)
[2018-01-06 13:39] LABS: BUN/Creatinine Ratio 13; Blood Urea Nitrogen 9 mg/dL (7-17); Calcium 8.8 mg/dL (8.4-10.2); Hemolysis Index 7
[2018-01-06] MEDS ORDERED: cefTRIAXone 1 GM in NACL 0.9% 20 ML IV ONE (13:45)
== END 2018-01-06 14:57 | disposition home or self-care (01) ==
LOC: ED 10:37
DX: B37.3 Candidiasis of vulva and vagina (principal); R19.09 Other intra-abdominal and pelvic swelling, mass and lump; N89.8 Other specified noninflammatory disorders of vagina; E11.65 Type 2 diabetes mellitus with hyperglycemia; N30.01 Acute cystitis with hematuria; I10 Essential (primary) hypertension; D64.9 Anemia, unspecified; Z79.82 Long term (current) use of aspirin
CPT/HCPCS: 36415; 80048; 81001; 82962; 85025; 87086; 87210; 87591; 96361; 96365; 99284; J0696; J7030

== ENCOUNTER 2019-05-23 20:44 | Emergency (ER) | payer OTHER ==
--- NOTE | 2019-05-23 21:11 | Event Note ---
ED Screening Note Date of service: 05/23/19 Time: 21:07 ED Screening Note: This is a 53 y.o. F. that presents to the ER with right flank pain and SOB x 2 weeks. PMH DM2, HTN, and anemia Denies fever, n/v/d, back pain, dysuria, urgency, or frequency. This initial assessment/diagnostic orders/clinical plan/treatment(s) is/are subject to change based on patients health status, clinical progression and re- assessment by fellow clinical providers in the ED. Further treatment and workup at subsequent clinical providers discretion. Patient/guardian urged not to elope from the ED as their condition may be serious if not clinically assessed and managed. Initial orders include: Labs
[2019-05-23 21:59] LABS: Basophils % (Auto) 0.5 % (0.0-1.8); Eosinophils # (Auto) 0.1 K/mm3 (0.0-0.4); Eosinophils % (Auto) 1.3 % (0.0-4.3); Hematocrit 37.8 % (30.3-42.9); Hemoglobin 12.6 gm/dl (10.1-14.3); Lymphocytes # (Auto) 1.8 K/mm3 (1.2-5.4); Lymphocytes % (Auto) 17.6 % (13.4-35.0); Mean Corpuscular HGB Conc 33 % (30-34); Mean Corpuscular Volume 85 fl (79-97); Monocytes # (Auto) 0.5 K/mm3 (0.0-0.8); Monocytes % (Auto) 4.7 % (0.0-7.3); Platelet Count 221 K/mm3 (140-440); Red Blood Count 4.42 M/mm3 (3.65-5.03); Red Cell Distribution Width 14.1 % (13.2-15.2)
[2019-05-23 22:03] LABS: Bilirubin,Urine NEG (Negative); Blood,Urine SM (Negative); Color,Urine Yellow (Yellow); Mucus,Urine FEW /HPF; Protein,Urine <15 mg/dL mg/dL (Negative); Urobilinogen,Urine < 2.0 mg/dL (<2.0); WBC,Urine < 1.0 /HPF (0.0-6.0)
[2019-05-23] MEDS ORDERED: DECADRON IM ONE (22:42)
[2019-05-23] MEDS ORDERED: TORADOL IM ONE (22:42)
[2019-05-23 22:45] LABS: Alanine Aminotransferase 35 units/L (7-56); Albumin 4.1 g/dL (3.9-5); BUN/Creatinine Ratio 20; Blood Urea Nitrogen 22 mg/dL (7-17); Calcium 9.3 mg/dL (8.4-10.2); Hemolysis Index 16
--- NOTE | 2019-05-23 23:34 | XRay Report ---
CHEST PA AND LATERAL VIEWS INDICATION: dyspnea. COMPARISON: None. FINDINGS: Support devices: None. Heart: Within normal limits. Lungs/Pleura: No acute pulmonary or pleural findings. Thoracic spondylosis is noted with prominent anterior osteophytes. IMPRESSION: 1. No significant abnormality. Signer Name: Jasmeet Martinez MD Signed: 05/23/2019 11:30 PM Workstation Name: [id number]
--- NOTE | 2019-05-24 00:35 | Emergency Department Report ---
ED General Adult HPI - General Chief complaint: Dyspnea/Respdistress Stated complaint: SOB/RT SIDE PAIN Time Seen by Provider: 05/23/19 21:07 Source: patient Mode of arrival: Ambulatory Limitations: No Limitations - History of Present Illness Initial comments: Patient is a 53-year-old female with a history of hypertension and djy-[id number] diabetes who presents to the ED with complaint of acute onset persistent nontraumatic low back pain and right flank pain that radiates to the right leg for the last 2 weeks. Patient also complains of acute onset shortness of breath for 2 days and dressed. Patient states that the shortness of breath is intermittent and persistent and gets worse without back pain. Patient denies dizziness, chest pain, shortness of breath, syncope, sore throat, cough, abdominal pain, nausea, vomiting, diaphoresis, fever, chills, neck pain, heavy lifting, fall, dysuria, urinary frequency and urgency, hematuria, trau matic injury, change in vision or headache. MD Complaint: low back pain, right flank pain, dyspnea -: Sudden, week(s) (2) Location: chest, back Radiation: back, other (right lower leg) Severity scale (0 -10): 8 Quality: aching, sharp Consistency: intermittent Improves with: none Worsens with: movement Associated Symptoms: denies other symptoms, shortness of breath. denies: confusion, chest pain, cough, diaphoresis, fever/chills, headaches, loss of appetite, malaise, nausea/vomiting, rash, seizure, syncope, weakness Treatments Prior to Arrival: none - Related Data Previous Rx's Medication Instructions Recorded Last Taken Type Aspirin [Aspirin BABY CHEW TAB] 81 mg PO QDAY #30 tab.chew 12/07/14 Unknown Rx HYDROcodone/APAP 5-325 [[place] 1 each PO Q6HR PRN #20 tablet 03/13/15 Unknown Rx 5/325] Ibuprofen [Motrin] 800 mg PO Q8H PRN #30 tablet 03/13/15 Unknown Rx Atorvastatin [Lipitor] 40 mg PO QHS #30 tab 03/06/17 Unknown Rx Cyclobenzaprine [Flexeril] 10 mg PO TID PRN #30 tablet 03/06/17 Unknown Rx Acetaminophen/Codeine [Tylenol 1 tab PO Q6H PRN 3 Days #12 tab 11/23/17 Unknown Rx /Codeine # 3 tab] Amoxicillin/K Clav Tab [Augmentin 1 tab PO Q12HR 10 Days #20 tab 11/23/17 Unknown Rx 875 mg] Cetirizine HCl [ZyrTEC] 10 mg PO QAM 14 Days #14 capsule 11/23/17 Unknown Rx Fluticasone [Flonase] 1 spray NS QDAY 14 Days #1 bottle 11/23/17 Unknown Rx Neomy/Polymyx B/Hc (Otic) Soln 4 drops OTIC TID 7 Days #1 bottle 11/23/17 Unknown Rx [Cortisporin (Otic) Soln] Fluconazole [Diflucan TAB] 100 mg PO QDAY 2 Days #2 tablet 01/06/18 Unknown Rx Lisinopril/Hydrochlorothiazide 1 tab PO QDAY #30 tablet 01/06/18 Unknown Rx [Zestoretic 10-12.5 mg] Nitrofurantoin [place]/M-Cryst 100 mg PO Q12HR 7 Days #14 capsule 01/06/18 Unknown Rx [Macrobid CAP] Nystatin Cream [Mycostatin Cream] 1 applic TP BID #1 tube 01/06/18 Unknown Rx metFORMIN [Glucophage] 500 mg PO BID #60 tablet 01/06/18 Unknown Rx metroNIDAZOLE [Flagyl] 500 mg PO Q12HR 7 Days #14 tab 01/06/18 Unknown Rx Baclofen 20 mg PO Q8H PRN #21 tablet 05/24/19 Unknown Rx Naproxen [Naprosyn] 500 mg PO Q12H PRN #20 tablet 05/24/19 Unknown Rx traMADol [Ultram] 50 mg PO Q6HR PRN #15 tablet 05/24/19 Unknown Rx Allergies Allergy/AdvReac Type Severity Reaction Status Date / Time No Known Allergies Allergy Verified 12/07/14 07:10 ED Review of Systems ROS: Stated complaint: SOB/RT SIDE PAIN Other details as noted in HPI Constitutional: denies: chills, fever Eyes: denies: eye pain, eye discharge, vision change ENT: denies: ear pain, throat pain Respiratory: shortness of breath. denies: cough, SOB with exertion, SOB at rest, wheezing Cardiovascular: denies: chest pain, palpitations, dyspnea on exertion, syncope, paroxysmal nocturnal dyspnea Endocrine: no symptoms reported Gastrointestinal: denies: abdominal pain, nausea, diarrhea Genitourinary: denies: urgency, dysuria, discharge Musculoskeletal: back pain, arthralgia. denies: joint swelling Skin: denies: rash, lesions Neurological: denies: headache, weakness, paresthesias Psychiatric: denies: anxiety, depression Hematological/Lymphatic: denies: easy bleeding, easy bruising ED Past Medical Hx - Past Medical History Hx Hypertension: Yes Hx CVA: No Hx Heart Attack/AMI: No Hx Congestive Heart Failure: No Hx Diabetes: Yes Hx Deep Vein Thrombosis: No Hx Pulmonary Embolism: No Hx GERD: No Hx Liver Disease: No Hx Renal Disease: No Hx Sickle Cell Disease: No Hx Arthritis: No Hx Headaches / Migraines: No Hx Seizures: No Hx Kidney Stones: No Hx Psychiatric Treatment: No Hx Asthma: No Hx COPD: No Hx Tuberculosis: No Hx Dementia: No Hx HIV: No Additional medical history: Anemia- - Surgical History Hx Coronary Stent: No Hx Open Heart Surgery: No Hx Pacemaker: No Hx Internal Defibrillator: No Hx Cholecystectomy: No Hx Appendectomy: No Hx Breast Surgery: No - Social History Smoking Status: Never Smoker Substance Use Type: None - Medications Home Medications: Home Medications Medication Instructions Recorded Confirmed Last Taken Type Aspirin [Aspirin BABY CHEW TAB] 81 mg PO QDAY #30 tab.chew 12/07/14 03/13/15 Unknown Rx HYDROcodone/APAP 5-325 [[place] 1 each PO Q6HR PRN #20 tablet 03/13/15 Unknown Rx 5/325] Ibuprofen [Motrin] 800 mg PO Q8H PRN #30 tablet 03/13/15 Unknown Rx Atorvastatin [Lipitor] 40 mg PO QHS #30 tab 03/06/17 Unknown Rx Cyclobenzaprine [Flexeril] 10 mg PO TID PRN #30 tablet 03/06/17 Unknown Rx Acetaminophen/Codeine [Tylenol 1 tab PO Q6H PRN 3 Days #12 tab 11/23/17 Unknown Rx /Codeine # 3 tab] Amoxicillin/K Clav Tab [Augmentin 1 tab PO Q12HR 10 Days #20 tab 11/23/17 Unknown Rx 875 mg] Cetirizine HCl [ZyrTEC] 10 mg PO QAM 14 Days #14 capsule 11/23/17 Unknown Rx Fluticasone [Flonase] 1 spray NS QDAY 14 Days #1 bottle 11/23/17 Unknown Rx Neomy/Polymyx B/Hc (Otic) Soln 4 drops OTIC TID 7 Days #1 bottle 11/23/17 Unknown Rx [Cortisporin (Otic) Soln] Fluconazole [Diflucan TAB] 100 mg PO QDAY 2 Days #2 tablet 01/06/18 Unknown Rx Lisinopril/Hydrochlorothiazide 1 tab PO QDAY #30 tablet 01/06/18 Unknown Rx [Zestoretic 10-12.5 mg] Nitrofurantoin [place]/M-Cryst 100 mg PO Q12HR 7 Days #14 capsule 01/06/18 Unknown Rx [Macrobid CAP] Nystatin Cream [Mycostatin Cream] 1 applic TP BID #1 tube 01/06/18 Unknown Rx metFORMIN [Glucophage] 500 mg PO BID #60 tablet 01/06/18 Unknown Rx metroNIDAZOLE [Flagyl] 500 mg PO Q12HR 7 Days #14 tab 01/06/18 Unknown Rx Baclofen 20 mg PO Q8H PRN #21 tablet 05/24/19 Unknown Rx Naproxen [Naprosyn] 500 mg PO Q12H PRN #20 tablet 05/24/19 Unknown Rx traMADol [Ultram] 50 mg PO Q6HR PRN #15 tablet 05/24/19 Unknown Rx ED Physical Exam - General Limitations: No Limitations General appearance: alert, in no apparent distress - Head Head exam: Present: atraumatic, normocephalic, normal inspection - Eye Eye exam: Present: normal appearance, PERRL. Absent: scleral icterus Pupils: Present: normal accommodation - ENT ENT exam: Present: normal exam, normal orophraynx, mucous membranes moist, TM's normal bilaterally, normal external ear exam - Neck Neck exam: Present: normal inspection, full ROM. Absent: tenderness - Respiratory Respiratory exam: Present: normal lung sounds bilaterally. Absent: respiratory distress, wheezes, rales, stridor, chest wall tenderness, accessory muscle use, decreased breath sounds, prolonged expiratory - Cardiovascular Cardiovascular Exam: Present: regular rate, normal rhythm, normal heart sounds. Absent: systolic murmur, diastolic murmur, rubs, gallop - GI/Abdominal GI/Abdominal exam: Present: soft, normal bowel sounds. Absent: distended, tenderness, hyperactive bowel sounds, hypoactive bowel sounds, organomegaly, mass, bruit, pulsatile mass - Rectal Rectal exam: Present: deferred - Extremities Exam Extremities exam: Present: normal inspection, full ROM, normal capillary refill - Back Exam Back exam: Present: normal inspection, full ROM, tenderness (Palpable lumbosacral paraspinal musculoskeletal tenderness), muscle spasm, paraspinal tenderness - Neurological Exam Neurological exam: Present: alert, oriented X3, CN II-XII intact, normal gait, reflexes normal - Psychiatric Psychiatric exam: Present: normal affect, normal mood - Skin Skin exam: Present: warm, dry, intact, normal color. Absent: rash ED Course Vital Signs 05/23/19 21:07 Temperature 97 F L Pulse Rate 74 Respiratory 18 Rate Blood Pressure 168/97 O2 Sat by Pulse 97 Oximetry - Reevaluation(s) Reevaluation #1: 05/24/19 00:36 Patient is alert and oriented 3 and is not in distress. Her EKG shows sinus bradycardia with a ventricular rate of [address] or T-wave abnormalities. Chest x-ray shows no acute pulmonary or pleural findings. There is however thoracic spondylolysis with prominent anterior osteophytes noted in the chest x- ray. Lab test results were reviewed and are all unremarkable including troponin levels. Patient was treated for pain in the ED. On reevaluation, the patient's pain is well controlled with medications and was discharged home on oral pain medications and muscle relaxants and patient advised to follow-up with her primary care physician in 5-7 days for reevaluation or return to the ED immediately if symptoms get worse. 05/24/19 01:12 05/24/19 01:23 ED Medical Decision Making - Lab Data Result diagrams: 05/23/19 21:28 05/23/19 21:28 - EKG Data Rate: bradycardia - Radiology Data Radiology results: report reviewed, image reviewed Chest x-ray shows no significant abnormality. There is however thoracic spondylosis noted with prominent anterior stiffness in the chest x-ray. - Medical Decision Making Patient is alert and oriented 3 and is not in distress. Chest x-ray shows no acute pulmonary or pleural findings. The EKG shows sinus bradycardia with a ventricular rate of 51 bpm, and no ST or T-wave abnormalities. There is however thoracic spondylolysis with prominent anterior osteophytes noted in the chest x- ray. Lab test results were reviewed and are all unremarkable including troponin levels. Patient was treated for pain in the ED. On reevaluation, the patient's pain is well controlled with medications and was discharged home on oral pain medications and muscle relaxants and patient advised to follow-up with her primary care physician in 5-7 days for reevaluation or return to the ED immediately if symptoms get worse. - Differential Diagnosis shortness of breath; low back pain with sciatica; muscle spasm Critical care attestation.: If time is entered above; I have spent that time in minutes in the direct care of this critically ill patient, excluding procedure time. ED Disposition Clinical Impression: Spasm of muscle of lower back, Shortness of breath Acute low back pain with right-sided sciatica Qualifiers: Back pain laterality: right Qualified Code(s): M54.41 - Lumbago with sciatica, right side Disposition: TO HOME OR SELFCARE Is pt being admited?: No Does the pt Need Aspirin: No Condition: Stable Instructions: Sciatica (ED), Dyspnea (ED), Muscle Spasm (ED), Back Pain (ED) Additional Instructions: Take medications with food, drink plenty of fluids and follow up with your primary care physician in 5-7 days for reevaluation. Return to the ED immediately if symptoms get worse. Prescriptions: Baclofen 20 mg PO Q8H PRN #21 tablet PRN Reason: Muscle Spasm Naproxen [Naprosyn] 500 mg PO Q12H PRN #20 tablet PRN Reason: Pain , Severe (7-10) traMADol [Ultram] 50 mg PO Q6HR PRN #15 tablet PRN Reason: Pain Referrals: NICK TOMAS MD [Primary Care Provider] - 3-5 Days Time of Disposition: 01:25 Print Language: FRISIAN
[2019-05-24 02:04] VITALS: BP 140/87
== END 2019-05-24 02:04 | disposition home or self-care (01) ==
LOC: ED 20:44
DX: M54.41 Lumbago with sciatica, right side (principal); R06.02 Shortness of breath; I10 Essential (primary) hypertension; E11.9 Type 2 diabetes mellitus without complications; Z86.2 Personal history of diseases of the blood and blood-forming organs and certain disorders involving the immune mechanism; Z79.899 Other long term (current) drug therapy
CPT/HCPCS: 36415; 71046; 80053; 81001; 83690; 83880; 84484; 85025; 93005; 93010; 96372; 99284; J1100; J1885

== ENCOUNTER 2021-07-26 10:53 | Emergency (ER) | payer SELFPAY ==
[2021-07-26 10:59] VITALS: BP 144/97
--- NOTE | 2021-07-26 11:17 | Emergency Department Report ---
ED General Adult HPI - General Chief complaint: Shoulder Injury Stated complaint: SHARP PAIN LT ARM AND SHOULDER BLADE Time Seen by Provider: 07/26/21 11:14 Source: patient Mode of arrival: Ambulatory Limitations: No Limitations - History of Present Illness Initial comments: 55-year-old female patient presents with complaints of left shoulder pain x3 da ys. Patient states the pain radiates into her neck and denies any chest pain or shortness of breath. She does report a history of diabetes and CAD with stent placement earlier this year. Patient also denies any cough, leg pain/swelling, recent long travel/surgeries, or history of DVT/PE/cancer. Pain occurs with movement of the shoulder per patient. She rates her pain as a 7/10 in severity and states Tylenol is not helping. No injuries or heavy lifting per patient. She also denies any numbness/tingling/weakness in her upper or left arm or hand - Related Data Previous Rx's Medication Instructions Recorded Last Taken Type Aspirin [Aspirin BABY CHEW TAB] 81 mg PO QDAY #30 tab.chew 12/07/14 Unknown Rx HYDROcodone/APAP 5-325 [[place] 1 each PO Q6HR PRN #20 tablet 03/13/15 Unknown Rx 5/325] Ibuprofen [Motrin] 800 mg PO Q8H PRN #30 tablet 03/13/15 Unknown Rx Atorvastatin [Lipitor] 40 mg PO QHS #30 tab 03/06/17 Unknown Rx Cyclobenzaprine [Flexeril] 10 mg PO TID PRN #30 tablet 03/06/17 Unknown Rx Acetaminophen/Codeine [Tylenol 1 tab PO Q6H PRN 3 Days #12 tab 11/23/17 Unknown Rx /Codeine # 3 tab] Amoxicillin/K Clav Tab [Augmentin 1 tab PO Q12HR 10 Days #20 tab 11/23/17 Unknown Rx 875 mg] Cetirizine HCl [ZyrTEC] 10 mg PO QAM 14 Days #14 capsule 11/23/17 Unknown Rx Fluticasone [Flonase] 1 spray NS QDAY 14 Days #1 bottle 11/23/17 Unknown Rx Neomy/Polymyx B/Hc (Otic) Soln 4 drops OTIC TID 7 Days #1 bottle 11/23/17 Unknown Rx [Cortisporin (Otic) Soln] Fluconazole [Diflucan TAB] 100 mg PO QDAY 2 Days #2 tablet 01/06/18 Unknown Rx Lisinopril/Hydrochlorothiazide 1 tab PO QDAY #30 tablet 01/06/18 Unknown Rx [Zestoretic 10-12.5 mg] Nitrofurantoin [place]/M-Cryst 100 mg PO Q12HR 7 Days #14 capsule 01/06/18 Unknown Rx [Macrobid CAP] Nystatin Cream [Mycostatin Cream] 1 applic TP BID #1 tube 01/06/18 Unknown Rx metFORMIN [Glucophage] 500 mg PO BID #60 tablet 01/06/18 Unknown Rx metroNIDAZOLE [Flagyl] 500 mg PO Q12HR 7 Days #14 tab 01/06/18 Unknown Rx Baclofen 20 mg PO Q8H PRN #21 tablet 05/24/19 Unknown Rx Naproxen [Naprosyn] 500 mg PO Q12H PRN #20 tablet 05/24/19 Unknown Rx traMADoL [Ultram] 50 mg PO Q6HR PRN #15 tablet 05/24/19 Unknown Rx Naproxen [Naprosyn TAB] 500 mg PO BID PRN #20 tablet 07/26/21 Unknown Rx metFORMIN [Glucophage] 1,000 mg PO BID 30 Days #60 tablet 07/26/21 Unknown Rx methocarbamoL [Methocarbamol] 750 mg PO TID PRN #20 tablet 07/26/21 Unknown Rx Allergies Allergy/AdvReac Type Severity Reaction Status Date / Time No Known Allergies Allergy Verified 07/26/21 10:59 ED Review of Systems ROS: Stated complaint: SHARP PAIN LT ARM AND SHOULDER BLADE Other details as noted in HPI Constitutional: denies: chills, fever, malaise Respiratory: denies: cough, shortness of breath Cardiovascular: denies: chest pain Musculoskeletal: arthralgia. denies: joint swelling Neurological: denies: numbness, paresthesias ED Past Medical Hx - Past Medical History Hx Hypertension: Yes Hx CVA: No Hx Heart Attack/AMI: No Hx Congestive Heart Failure: No Hx Diabetes: Yes Hx Deep Vein Thrombosis: No Hx Pulmonary Embolism: No Hx GERD: No Hx Liver Disease: No Hx Renal Disease: No Hx Sickle Cell Disease: No Hx Arthritis: No Hx Headaches / Migraines: No Hx Seizures: No Hx Kidney Stones: No Hx Psychiatric Treatment: No Hx Asthma: No Hx COPD: No Hx Tuberculosis: No Hx Dementia: No Hx HIV: No Additional medical history: Anemia- - Surgical History Hx Coronary Stent: No Hx Open Heart Surgery: No Hx Pacemaker: No Hx Internal Defibrillator: No Hx Cholecystectomy: No Hx Appendectomy: No Hx Breast Surgery: No - Social History Smoking Status: Never Smoker Substance Use Type: None - Medications Home Medications: Home Medications Medication Instructions Recorded Confirmed Last Taken Type Aspirin [Aspirin BABY CHEW TAB] 81 mg PO QDAY #30 tab.chew 12/07/14 03/13/15 Unknown Rx HYDROcodone/APAP 5-325 [[place] 1 each PO Q6HR PRN #20 tablet 03/13/15 Unknown Rx 5/325] Ibuprofen [Motrin] 800 mg PO Q8H PRN #30 tablet 03/13/15 Unknown Rx Atorvastatin [Lipitor] 40 mg PO QHS #30 tab 03/06/17 Unknown Rx Cyclobenzaprine [Flexeril] 10 mg PO TID PRN #30 tablet 03/06/17 Unknown Rx Acetaminophen/Codeine [Tylenol 1 tab PO Q6H PRN 3 Days #12 tab 11/23/17 Unknown Rx /Codeine # 3 tab] Amoxicillin/K Clav Tab [Augmentin 1 tab PO Q12HR 10 Days #20 tab 11/23/17 Unknown Rx 875 mg] Cetirizine HCl [ZyrTEC] 10 mg PO QAM 14 Days #14 capsule 11/23/17 Unknown Rx Fluticasone [Flonase] 1 spray NS QDAY 14 Days #1 bottle 11/23/17 Unknown Rx Neomy/Polymyx B/Hc (Otic) Soln 4 drops OTIC TID 7 Days #1 bottle 11/23/17 Unknown Rx [Cortisporin (Otic) Soln] Fluconazole [Diflucan TAB] 100 mg PO QDAY 2 Days #2 tablet 01/06/18 Unknown Rx Lisinopril/Hydrochlorothiazide 1 tab PO QDAY #30 tablet 01/06/18 Unknown Rx [Zestoretic 10-12.5 mg] Nitrofurantoin [place]/M-Cryst 100 mg PO Q12HR 7 Days #14 capsule 01/06/18 Unknown Rx [Macrobid CAP] Nystatin Cream [Mycostatin Cream] 1 applic TP BID #1 tube 01/06/18 Unknown Rx metFORMIN [Glucophage] 500 mg PO BID #60 tablet 02/20/18 Unknown Rx metroNIDAZOLE [Flagyl] 500 mg PO Q12HR 7 Days #14 tab 01/06/18 Unknown Rx Baclofen 20 mg PO Q8H PRN #21 tablet 05/24/19 Unknown Rx Naproxen [Naprosyn] 500 mg PO Q12H PRN #20 tablet 05/24/19 Unknown Rx traMADoL [Ultram] 50 mg PO Q6HR PRN #15 tablet 05/24/19 Unknown Rx Naproxen [Naprosyn TAB] 500 mg PO BID PRN #20 tablet 07/26/21 Unknown Rx metFORMIN [Glucophage] 1,000 mg PO BID 30 Days #60 tablet 07/26/21 Unknown Rx methocarbamoL [Methocarbamol] 750 mg PO TID PRN #20 tablet 07/26/21 Unknown Rx ED Physical Exam - General Limitations: No Limitations General appearance: alert, in no apparent distress - Head Head exam: Present: atraumatic, normocephalic - Neck Neck exam: Present: tenderness (Tenderness to palpation noted to mid/lower cervical spine and paraspinal muscles without obvious deformity or step-off), full ROM - Respiratory Respiratory exam: Present: normal lung sounds bilaterally. Absent: respiratory distress - Cardiovascular Cardiovascular Exam: Present: regular rate, normal rhythm - Expanded Upper Extremity Exam Left Shoulder Exam: Present: normal inspection Upper Arm exam: Present: normal inspection Elbow exam: Present: normal inspection Forearm Wrist exam: Present: normal inspection Hand Wrist exam: Present: normal inspection - Neurological Exam Neurological exam: Present: alert, oriented X3 - Psychiatric Psychiatric exam: Present: normal affect, normal mood - Skin Skin exam: Present: warm, dry, intact, normal color. Absent: rash ED Course Vital Signs 07/26/21 10:57 Temperature 98.6 F Pulse Rate 76 Respiratory 18 Rate Blood Pressure 144/97 O2 Sat by Pulse 98 Oximetry ED Medical Decision Making - Lab Data Result diagrams: 07/26/21 11:35 07/26/21 11:35 Lab Results 07/26/21 07/26/21 Range/Units 11:35 11:35 WBC 7.2 (4.5-11.0) K/mm3 RBC 4.23 (3.65-5.03) M/mm3 Hgb 12.3 (10.1-14.3) gm/dl Hct 36.9 (30.3-42.9) % MCV 87 (79-97) fl MCH 29 (28-32) pg MCHC 33 (30-34) % RDW 13.7 (13.2-15.2) % Plt Count 218 (140-440) K/mm3 Lymph % (Auto) 15.5 (13.4-35.0) % [place] % (Auto) 7.3 (0.0-7.3) % Eos % (Auto) 2.0 (0.0-4.3) % Baso % (Auto) 0.4 (0.0-1.8) % Lymph # (Auto) 1.1 L (1.2-5.4) K/mm3 [place] # (Auto) 0.5 (0.0-0.8) K/mm3 Eos # (Auto) 0.1 (0.0-0.4) K/mm3 Baso # (Auto) 0.0 (0.0-0.1) K/mm3 Seg Neutrophils % 74.8 H (40.0-70.0) % Seg Neutrophils # 5.4 (1.8-7.7) K/mm3 Sodium 140 (137-145) mmol/L Potassium 4.3 (3.6-5.0) mmol/L Chloride 105.7 (98-107) mmol/L Carbon Dioxide 25 (22-30) mmol/L Anion Gap 14 mmol/L BUN 12 (7-17) mg/dL Creatinine 1.1 (0.6-1.2) mg/dL Estimated GFR 51 ml/min BUN/Creatinine Ratio 11 % Glucose 252 H (65-100) mg/dL Calcium 9.2 (8.4-10.2) mg/dL Total Bilirubin 0.30 (0.1-1.2) mg/dL AST 34 (5-40) units/L ALT 32 (7-56) units/L Alkaline Phosphatase 85 (35-129) units/L Troponin T < 0.010 (0.00-0.029) ng/mL Total Protein 7.1 (6.3-8.2) g/dL Albumin 4.0 (3.9-5) g/dL Albumin/Globulin Ratio 1.3 % - EKG Data EKG shows normal: sinus rhythm Rate: normal - EKG Data Interpretation: other (Right bundle branch block) - Radiology Data Radiology results: report reviewed CHEST 2 VIEWS INDICATION / CLINICAL INFORMATION: left shoulder/chest pain. COMPARISON: 05/23/2019 FINDINGS: SUPPORT DEVICES: None. HEART / MEDIASTINUM: No significant abnormality. LUNGS / PLEURA: No significant pulmonary or pleural abnormality. No pneumothorax. ADDITIONAL FINDINGS: Thoracic spondylosis is again noted and appears unchanged. IMPRESSION: 1. No acute findings. No significant change. Cervical spine 3 views Indication: pain radiating to left shoulder Findings: There is no fracture, subluxation, or other acute radiographic abnormality of the cervical spine. There is degenerative change with disc space narrowing and anterior osteophyte formation at C4-5 and C5-6. There is anterior osteophyte formation at C3-4. The prevertebral soft tissues are unre markable. - Medical Decision Making 55-year-old female patient presents with complaints of left shoulder pain x3 days. Patient states the pain radiates into her neck and denies any chest pain or shortness of breath. She does report a history of diabetes and CAD with stent placement earlier this year. Patient also denies any cough, leg pain/swelling, recent long travel/surgeries, or history of DVT/PE/cancer. Pain occurs with movement of the shoulder per patient. She rates her pain as a 7/10 in severity and states Tylenol is not helping. No injuries or heavy lifting per patient. She also denies any numbness/tingling/weakness in her upper or left arm or hand' Given history of CAD and an acute onset of left shoulder pain without injury, cardiac work-up was performed. No significant abnormalities noted on EKG, chest x-ray, or troponin/CBC/CMP. X-ray of the cervical spine shows arthritic changes to C3-C6. Suspect cervical radiculopathy. Will treat with NSAIDs, icing, and muscle relaxers and stretching. Recommend follow-up with PCP within 3 days. Discussed in detail presumptive diagnosis, treatment plan, and signs and symptoms that should prompt immediate return to the emergency department in detail patient verbalizes understanding. She is well-appearing, her vitals are within normal limits, she is stable for discharge home. Critical care attestation.: If time is entered above; I have spent that time in minutes in the direct care of this critically ill patient, excluding procedure time. ED Disposition Clinical Impression: Left shoulder pain, Cervical radicular pain Disposition: HOME / SELF CARE / HOMELESS Is pt being admited?: No Condition: Stable Instructions: Cervical Radiculopathy, Shoulder Pain Prescriptions: metFORMIN [Glucophage] 1,000 mg PO BID 30 Days #60 tablet methocarbamoL [Methocarbamol] 750 mg PO TID PRN #20 tablet PRN Reason: muscle spasm/tightness Naproxen [Naprosyn TAB] 500 mg PO BID PRN #20 tablet PRN Reason: pain Referrals: [facility] [Provider Group] - 3-5 Days Forms: Work/School Release Form(ED)
--- NOTE | 2021-07-26 11:47 | XRay Report ---
CHEST 2 VIEWS INDICATION / CLINICAL INFORMATION: left shoulder/chest pain. COMPARISON: 05/23/2019 FINDINGS: SUPPORT DEVICES: None. HEART / MEDIASTINUM: No significant abnormality. LUNGS / PLEURA: No significant pulmonary or pleural abnormality. No pneumothorax. ADDITIONAL FINDINGS: Thoracic spondylosis is again noted and appears unchanged. IMPRESSION: 1. No acute findings. No significant change. Signer Name: Christian Arevalo MD Signed: 07/26/2021 11:40 AM Workstation Name: [id number]
--- NOTE | 2021-07-26 11:48 | XRay Report ---
Cervical spine 3 views Indication: pain radiating to left shoulder Findings: There is no fracture, subluxation, or other acute radiographic abnormality of the cervical spine. There is degenerative change with disc space narrowing and anterior osteophyte formation at C4-5 and C5-6. There is anterior osteophyte formation at C3-4. The prevertebral soft tissues are unremarkable . Signer Name: Christian Arevalo MD Signed: 07/26/2021 11:44 AM Workstation Name: [id number]
[2021-07-26 12:07] LABS: Basophils % (Auto) 0.4 % (0.0-1.8); Hematocrit 36.9 % (30.3-42.9); Hemoglobin 12.3 gm/dl (10.1-14.3); Lymphocytes # (Auto) 1.1 K/mm3 (1.2-5.4); Lymphocytes % (Auto) 15.5 % (13.4-35.0); Mean Corpuscular HGB Conc 33 % (30-34); Mean Corpuscular Volume 87 fl (79-97); Monocytes % (Auto) 7.3 % (0.0-7.3); Platelet Count 218 K/mm3 (140-440); Red Blood Count 4.23 M/mm3 (3.65-5.03); Red Cell Distribution Width 13.7 % (13.2-15.2)
[2021-07-26 12:08] LABS: Eosinophils # (Auto) 0.1 K/mm3 (0.0-0.4); Monocytes # (Auto) 0.5 K/mm3 (0.0-0.8)
[2021-07-26 12:30] LABS: Alanine Aminotransferase 32 units/L (7-56); BUN/Creatinine Ratio 11; Blood Urea Nitrogen 12 mg/dL (7-17); Calcium 9.2 mg/dL (8.4-10.2); Hemolysis Index 5
--- NOTE | 2021-07-27 10:14 | Electrocardiograph Report ---
[facility] Test Date: 2021-07-26 Test Time: 11:15:13 Pat Name: REBECA SYLVESTER Department: Room: Gender: F Manager Core: REEMA : 1965 Requested By: LUDA ENRIQUE Order Number: [id number] Reading MD: Vasiliy Quintero Measurements Intervals [place] Rate: 62 P: 61 MN: 141 QRS: -45 QRSD: 124 T: -13 QT: 460 QTc: 468 Interpretive Statements Sinus rhythm RBBB and LAFB No previous ECG available for comparison Electronically Signed On 07-27-2021 10:13:44 EDT by Vasiliy Quintero
== END 2021-07-26 13:26 | disposition home or self-care (01) ==
LOC: ED 10:53
DX: M25.512 Pain in left shoulder (principal); M54.12 Radiculopathy, cervical region; I10 Essential (primary) hypertension; E11.8 Type 2 diabetes mellitus with unspecified complications; D64.9 Anemia, unspecified
CPT/HCPCS: 36415; 71046; 72040; 80053; 84484; 85025; 93005; 99283